=== PATIENT | female | born 2000 | race Caucasian/White ===

== ENCOUNTER 2021-11-21 11:34 | Outpatient (CLI) | payer MEDICAID, SELFPAY ==
[2021-11-21 15:17] LABS: HIV 1/2/P24 Combo Screen* Negative (Negative)
[2021-11-21 15:20] LABS: Hepatitis B Surface Antigen* Negative (Negative)
[2021-11-21 15:37] LABS: Hepatitis C Virus Antibody* Negative (Negative)
[2021-11-21 16:23] LABS: Hepatitis B Surface Antibody* Negative (Negative)
[2021-11-21 17:09] LABS: Chlamydia DNA Amplified* DETECTED (No Detected); GC DNA Amplified* DETECTED (No Detected)
[2021-11-21 19:38] LABS: HCG Qualitative Serum* Negative (Negative)
[2021-11-22 19:18] LABS: Rapid Plasma Reagin (RPR) Non Reactive (Non Reactive)
== END 2021-11-21 11:35 | disposition home or self-care (01) ==
PROVIDERS: PCP Family Medicine; Visit Provider Family Medicine
DX: Z11.3 Encounter for screening for infections with a predominantly sexual mode of transmission (principal); N91.2 Amenorrhea, unspecified
CPT/HCPCS: 84703; 86592; 86703; 86706; 86803; 87340; 87491; 87591

== ENCOUNTER 2023-11-03 14:20 | Outpatient (CLI) | payer MEDICAID, SELFPAY ==
--- OUTSIDE RECORDS SUMMARY | 2023-11-03 19:03 | XMS_ITS | Clinical Summary ---
Author Organization [facility] Address [address], [place] [address] Care Team Providers Care Wire Loop Machine Operator Name Role Phone Unavailable Primary Care Provider Unavailabl e Source Comments You are receiving this document as you are listed as the primary care provider,follow-up provider, or the patient has been referred to you for consultation.This is in compliance with the Medicare and[facility] EHR Incentive Program,which states Providers who transition their patient to another setting of careor provider of care or refers their patient to another provider of care shouldprovide summary care record for each transition of care or referral. [facility] Allergies No known active allergies Medications No known medications Active Problems No known active problems Social History Tobacco Use Types Packs/Day Years Used Date Smoking Tobacco: Never Smokeless Tobacco: Never Sex and Gender Information Value Date Recorded Sex Assigned at Not on file Gender Identity Not on file Sexual Orientation Not on file Last Filed Vital Signs Vital Sign Reading Time Taken Comments Blood Pressure 120/58 10/08/2020 4:52 PM CDT Pulse 60 10/08/2020 4:52 PM CDT Temperature 36.7 ??C (98 ??F) 10/08/2020 4:52 PM CDT Respiratory Rate 14 10/08/2020 4:52 PM CDT Oxygen Saturation 100% 10/08/2020 4:52 PM CDT Inhaled Oxygen Concentration - - Weight - - Height - - Body Mass Index - - Plan of Treatment Health Maintenance Due Date Last Done Comments Cervical Cancer Screening Due 2001 Chlamydia 2001 Hep C Screening (Preventive Services) 2001 HIV Screening (Preventive Services) 2017 HPV Vaccine (3 - 3-dose series) 07/02/2019 04/09/2019, 12/02/2018 Adult Preventive Visit 12/16/2019 HepB (1) 2020 COVID-19 Vaccine (3 - 2022- season) 2022 08/17/2020, 07/20/2020 DTaP/Tdap/Td (7 - Tdap) 2023 12/15/19 14, 01/10/2006, 04/08/2003, Additional history exists Influenza (#1) 2023 Zoster/Shingles (1 of 2) 12/16/2051 Hib Completed 01/07/2003, 05/30, 04/14/2002, Additional history exists IPV (Polio) Completed 01/10/2006, 03/28, 01/07/2003, Additional history exists MCV4 Completed 12/02/2018, 12/14/2013 HepA Aged Out No longer eligi ble based on patient's age to complete this topic Pneumococcal Aged Out No longer eligi ble based on patient's age to complete this topic
--- OUTSIDE RECORDS SUMMARY | 2023-11-03 19:03 | XMS_ITS | Referral Summary ---
Author Organization [facility] Address [address] [place] [address] Care Team Providers Care Drugless Doctor Name Role Phone No Ref-Primary, Physician Primary Care Provider Allergies No known active allergies Medications Medication Sig Dispensed Refills Start Date End Date Status FLUoxetine (PROZAC) 10 MG capsule Take 10 mg by mouth daily Active Social History Tobacco Use Types Packs/Day Years Used Date Smoking Tobacco: Every Day Smokeless Tobacco: Current Comments:Marijuana Adolescent Education Answer Date Record ed Getting School Help Needed Not on file 02/11 Sex and Gender Information Value Date Recorded Sex Assigned at Not on file Gender Identity Not on file Sexual Orientation Not on file Last Filed Vital Signs Vital Sign Reading Time Taken Comments Blood Pressure 136/84 08/10/2021 10:15 AM CDT Pulse 110 08/10/2021 10:15 AM CDT Temperature 38.5 ??C (101.3 ??F) 08/10/2021 10:15 AM CDT Respiratory Rate 20 08/10/2021 10:15 AM CDT Oxygen Saturation 97% 08/10/2021 10:15 AM CDT Inhaled Oxygen Concentration - - Weight 56.7 kg (125 lb) 08/10/2021 10:15 AM CDT Height 160 cm (5' 3) 08/10/2021 10:15 AM CDT Body Mass Index 22.14 08/10/2021 10:15 AM CDT Plan of Treatment Not on file Care Teams Drugless Doctor Relationship Specialty Start Date End Date No Ref-Primary, Physician PCP - General 08/10/21
--- OUTSIDE RECORDS SUMMARY | 2023-11-03 19:03 | XMS_ITS | Clinical Summary ---
Author Organization [facility] Address [address] [place] [id number] Care Team Providers Care Research Intern Name Role Phone No Ref-Primary, Physician Primary [...] 08/10/2021 10:15 AM CDT Plan of Treatment Health Maintenance Due Date Last Done Comments ADVANCE CARE PLANNING 2001 ANNUAL REVIEW OF HM ORDERS 2001 CHLAMYDIA SCREENING 2001 YEARLY PREVENTIVE VISIT 2001 Pneumococcal Vaccine: Pediatrics (0 to 5 Years) and At-Risk Patients (6 to 64 Years) (1 of 2 - PCV) 12/16/2007 HIV SCREENING 2016 HPV IMMUNIZATION (3 - 3-dose series) 07/02/2019 04/09/2019, 12/02/2018 HEPATITIS C SCREENING 12/16/2019 PAP 2022 COVID-19 Vaccine ( season) 2022 06/25/2021, 08/17/2020, 07/20/2020 PHQ-2 (once per calendar year) 2023 DTAP/TDAP/TD IMMUNIZATION (7 - Td or Tdap) 2023 12/14/2013, 01/10/2006, 04/08/2003, Additional history exists INFLUENZA VACCINE (Season Ended) 2023 HEPATITIS B IMMUNIZATION Completed 003, 02/12/2002, 2001 IPV IMMUNIZATION Completed 01/10/2006, 03/2003, 01/07/2003, Additional history exists MENINGITIS IMMUNIZATION Completed 12/02/2018, 12/14 RSV MONOCLONAL ANTIBODY Aged Out No l onger eligible based on patient's age to complete this topic Care Teams Research Intern Relationship Specialty Start Date End Date No Ref-Primary, Physician PCP - General 08/10/21
== END 2023-11-03 14:21 | disposition home or self-care (01) ==
LOC: NFLDREF 18:59
PROVIDERS: PCP Family Medicine; Referring Provider Family Medicine; Visit Provider Family Medicine
DX: E78.5 Hyperlipidemia, unspecified (principal); R53.83 Other fatigue; F10.10 Alcohol abuse, uncomplicated; R63.5 Abnormal weight gain; Z68.26 Body mass index [BMI] 26.0-26.9, adult
CPT/HCPCS: 80053; 80061; 84439; 84443

== ENCOUNTER 2023-11-07 06:44 | Outpatient (CLI) | payer MEDICAID, SELFPAY ==
--- OUTSIDE RECORDS SUMMARY | 2023-11-07 10:38 | XMS_ITS | Referral Summary ---
Author Organization [facility] Address [address] [place] [id number] Care Team Providers Care Manager Heavy Equipment Name Role Phone No Ref-Primary, Physician Primary [...] of Treatment Not on file Care Teams Manager Heavy Equipment Relationship Specialty Start Date End Date No Ref-Primary, Physician PCP - General 08/10/21
--- OUTSIDE RECORDS SUMMARY | 2023-11-07 10:38 | XMS_ITS | Clinical Summary ---
Author Organization [facility] Address [address], [place] [address] Care Team Providers Care Graduate School Dean Name Role Phone Unavailable Primary Care Provider Unavailabl e Source Comments You are receiving this document as you are listed as the primary care provider,follow-up provider, or the patient has been referred to you for consultation.This is in compliance with the Medicare and[facility] E[facility] Incentive Program,which states Providers who transition [...]
--- OUTSIDE RECORDS SUMMARY | 2023-11-07 10:38 | XMS_ITS | Clinical Summary ---
Author Organization [facility] Address [address] [place] [id number] Care Team Providers Care Produce Sorter Name Role Phone No Ref-Primary, Physician Primary [...] age to complete this topic Care Teams Produce Sorter Relationship Specialty Start Date End Date No Ref-Primary, Physician PCP - General 08/10/21
== END 2023-11-07 06:45 | disposition home or self-care (01) ==
PROVIDERS: PCP Family Medicine; Visit Provider Family Medicine
DX: Z01.419 Encounter for gynecological examination (general) (routine) without abnormal findings (principal); R79.89 Other specified abnormal findings of blood chemistry; Z11.3 Encounter for screening for infections with a predominantly sexual mode of transmission
CPT/HCPCS: 87491; 87591

== ENCOUNTER 2024-02-17 11:44 | Outpatient (CLI) | payer MEDICAID, SELFPAY ==
--- OUTSIDE RECORDS SUMMARY | 2024-02-17 11:46 | XMS_ITS | Clinical Summary ---
Author Organization [facility] Address [address] [place] [address] Care Team Providers Care Battery Wrecker Operator Name Role Phone No Ref-Primary, Physician Primary [...] 12/02/2018 HEPATITIS C SCREENING 12/16/2019 PAP 2022 PHQ-2 (once per calendar year) 2023 DTAP/TDAP/TD IMMUNIZATION (7 - Td or Tdap) 2023 12/14/2013, 01/10/2006, 04/08/2003, Additional history exists COVID-19 Vaccine ( season) 2023 06/25/2021, 08/17/2020, 07/20/2020 INFLUENZA VACCINE (#1) 2023 HEPATITIS B IMMUNIZATION Completed 003, 02/12/2002, 2001 MENINGITIS IMMUNIZATION Completed 12/02/2018, 12/14 RSV MONOCLONAL ANTIBODY Aged Out No l onger eligible based on patient's age to complete this topic Care Teams Battery Wrecker Operator Relationship Specialty Start Date End Date No Ref-Primary, Physician PCP - General 08/10/21
--- OUTSIDE RECORDS SUMMARY | 2024-02-17 11:46 | XMS_ITS | Clinical Summary ---
Author Organization [facility] Address [address], [place] [address] Care Team Providers Care Retail Sales Associate Name Role Phone Unavailable Primary Care Provider Unavailabl e Source Comments You are receiving this document as you are listed as the primary care provider,follow-up provider, or the patient has been referred to you for consultation.This is in compliance with the Medicare and[facility] EHR Incentive Program,which states Providers [...] Adult Preventive Visit 12/16/2019 HepB (1) 2020 DTaP/Tdap/Td (7 - Tdap) 2023 12/15/19 14, 01/10/2006, 04/08/2003, Additional history exists COVID-19 Vaccine ( season) 2023 08/17/2020, 07/20/2020 Influenza (#1) 2023 Zoster/Shingles (1 of 2) 12/16/2051 Hib Completed 01/07/2003, 05/30, 04/14/2002, Additional history exists IPV (Polio) Completed 01/10/2006, 03/28, 01/07/2003, Additional history exists MCV4 Completed 12/02/2018, 12/14/2013 HepA Aged Out No longer eligi ble based on patient's age to complete this topic RSV Aged Out No longer eligi ble based on patient's age to complete this topic Pneumococcal Aged Out No longer eligi ble based on patient's age to complete this topic
--- OUTSIDE RECORDS SUMMARY | 2024-02-17 11:46 | XMS_ITS | Referral Summary ---
Author Organization [facility] Address [address] [place] [id number] Care Team Providers Care General Passenger Agent Name Role Phone No Ref-Primary, Physician Primary [...] of Treatment Not on file Care Teams General Passenger Agent Relationship Specialty Start Date End Date No Ref-Primary, Physician PCP - General 08/10/21
[2024-02-17 14:44] LABS: Chlamydia DNA Amplified* NOT DETECTED (No Detected); GC DNA Amplified* NOT DETECTED (No Detected)
[2024-02-17 19:44] LABS: Bacterial Vaginosis* Negative (Negative); Candida glab/krus NOT DETECTED (No Detected); Candida species DETECTED (No Detected); Trichomonas vaginalis NOT DETECTED (No Detected)
== END 2024-02-17 11:45 | disposition home or self-care (01) ==
PROVIDERS: PCP Family Medicine; Visit Provider Registered Nurse
DX: N89.8 Other specified noninflammatory disorders of vagina (principal)
CPT/HCPCS: 81513; 87481; 87491; 87591; 87661

== ENCOUNTER 2025-04-15 14:55 | Outpatient (CLI) | payer MEDICAID, SELFPAY | END 2025-04-15 14:56 | disposition home or self-care (01) | LOC: NFLDREF 04-20 06:06 | PROVIDERS: PCP Family Medicine; Referring Provider Family Medicine; Visit Provider Family Medicine | DX: F10.10 Alcohol abuse, uncomplicated (principal); Z13.9 Encounter for screening, unspecified | CPT/HCPCS: 80053; 80061 ==

== ENCOUNTER 2025-04-19 07:59 | Outpatient (CLI) | payer MEDICAID, SELFPAY ==
[2025-04-19 11:30] LABS: Chlamydia DNA Amplified* NOT DETECTED (No Detected); GC DNA Amplified* NOT DETECTED (No Detected)
[2025-04-26 10:11] LABS: Pap Test Digital Imaging Done
== END 2025-04-19 08:00 | disposition home or self-care (01) ==
PROVIDERS: PCP Family Medicine; Visit Provider Family Medicine
DX: Z12.4 Encounter for screening for malignant neoplasm of cervix (principal); Z11.3 Encounter for screening for infections with a predominantly sexual mode of transmission
CPT/HCPCS: 87491; 87591; 87624; 87625; 88141; 88142; 88175